=== PATIENT | male | born 1985 | race Caucasian/White ===

== ENCOUNTER 2016-07-24 14:53 | Emergency (ER) | payer OTHER ==
[~2016-07-24] VITALS: Ht 180.3 cm; Wt 69.4 kg
[2016-07-24] MEDS ORDERED: ORPHENADRINE 60 MG/2 ML (NORFLEX) AMP IM ONE (15:05)
[2016-07-24] MEDS ORDERED: KETOROLAC 60 MG/2 ML (TORADOL) VIAL IM ONE (15:05)
--- NOTE | 2016-07-24 17:00 | NUR ---
pt playing on phone
[2016-07-24] MEDS ORDERED: ONDANSETRON 4 MG (ZOFRAN) ORAL DISSOLVE TAB PO ONE (17:10)
[2016-07-24] MEDS ORDERED: LORazepam 2 MG/ML (ATIVAN) 1 ML VIAL IM ONE (17:10)
[2016-07-24] MEDS ORDERED: HYDROmorphone 1 MG/ML (DILAUDID) SYRINGE IM ONE (17:10)
--- NOTE | 2016-07-24 17:24 | NUR ---
pt stressed due to his neck pain, gave him warm blankets and turned out the lights
[2016-07-24 17:32] VITALS: BP 126/69
== END 2016-07-24 17:33 ==
LOC: ED 14:57
DX: M54.12 Radiculopathy, cervical region (principal)
CPT/HCPCS: 71010; 72040; 93005; 96372; 99282; J1170; J1885; J2060; J2360; 93010; 99284

== ENCOUNTER → 2016-07-26 | Outpatient (CLI) | payer SELFPAY | LOC: EMS 14:20 | PROVIDERS: ATTEND Emergency Medicine | DX: M54.2 Cervicalgia (principal); M25.511 Pain in right shoulder ==

== ENCOUNTER → 2016-07-26 | Emergency (ER) | payer SELFPAY ==
[~2016-07-26] VITALS: Ht 172.7 cm; Wt 75.0 kg
[2016-07-26 14:35] VITALS: BP 119/69
== END ==
LOC: EDUNIT# 14:37 → ED 14:39
DX: M54.2 Cervicalgia (principal); M62.838 Other muscle spasm; F17.210 Nicotine dependence, cigarettes, uncomplicated
CPT/HCPCS: 99281; 99282

== ENCOUNTER 2016-08-22 17:39 | Emergency (ER) | payer SELFPAY ==
[~2016-08-22] VITALS: Ht 180.3 cm; Wt 70.5 kg
[2016-08-22 17:55] VITALS: BP 120/81
[2016-08-22] MEDS ORDERED: ONDANSETRON 2 MG/ML (Z0FRAN) 2 ML VIAL IV ONE (18:05)
[2016-08-22] MEDS ORDERED: HALOPERIDOL 5 MG/ML (HALDOL) 1 ML AMP IV ONE (18:05)
[2016-08-22] MEDS ORDERED: DEXAMETHASONE 10 MG/ML (DECADRON) VIAL IV ONE (18:05)
[2016-08-22] MEDS ORDERED: diphenhydrAMINE 50 MG/ML INJ (BENADRYL) IV ONE (18:05)
--- NOTE | 2016-08-22 19:15 | NUR ---
PATIENT UP TO TOILET IN ROOM TO URINATE. REPORTS NO CAZARES BUT SAYS NECK PAIN PERSISTS AND RATES DISCOMFORT AT "8".
--- NOTE | 2016-08-22 19:21 | NUR ---
HEADACHE IS GONE
[2016-08-22] MEDS ORDERED: SODIUM CHLORIDE FLUSH 3 ML SYR IV PRN (23:35)
== END 2016-08-22 20:08 | disposition home or self-care (01) ==
LOC: ED 17:41
DX: M50.90 Cervical disc disorder, unspecified, unspecified cervical region (principal); M54.2 Cervicalgia; F17.210 Nicotine dependence, cigarettes, uncomplicated
CPT/HCPCS: 96374; 96375; 99283; J1100; J1200; J1630; J2405; J7030